=== PATIENT | female | born 1990 | race Caucasian/White ===

== ENCOUNTER → 2016-11-17 14:30 | Outpatient (CLI) | payer MEDICAID ==
[~2016-11-17 14:30] MED LIST: IBUPROFEN600 MG PO; PERCOCET 5-3251 TAB PO
[2017-01-25 09:11] VITALS: BMI 25.9
== END | disposition home or self-care (01) ==
LOC: D.LDO 14:30
DX: O26.893 Other specified pregnancy related conditions, third trimester (principal); Z3A.35 35 weeks gestation of pregnancy

== ENCOUNTER → 2016-11-21 13:13 | Outpatient (CLI) | payer MEDICAID ==
[2017-01-25 09:11] VITALS: BMI 25.9
== END | disposition home or self-care (01) ==
LOC: D.LDO 13:13
DX: O26.893 Other specified pregnancy related conditions, third trimester (principal); Z3A.36 36 weeks gestation of pregnancy

== ENCOUNTER → 2016-11-24 13:13 | Outpatient (CLI) | payer MEDICAID ==
[2017-01-25 09:11] VITALS: BMI 25.9
== END | disposition home or self-care (01) ==
LOC: D.LDO 13:13
DX: O26.893 Other specified pregnancy related conditions, third trimester (principal); Z3A.36 36 weeks gestation of pregnancy

== ENCOUNTER → 2016-11-28 13:41 | Outpatient (CLI) | payer MEDICAID ==
[2017-01-25 09:11] VITALS: BMI 25.9
== END | disposition home or self-care (01) ==
LOC: D.LDO 13:41
DX: O26.893 Other specified pregnancy related conditions, third trimester (principal); Z3A.37 37 weeks gestation of pregnancy

== ENCOUNTER → 2016-12-01 12:14 | Outpatient (CLI) | payer MEDICAID ==
[2017-01-25 09:11] VITALS: BMI 25.9
== END | disposition home or self-care (01) ==
LOC: D.LDO 12:14
DX: O26.893 Other specified pregnancy related conditions, third trimester (principal); Z3A.37 37 weeks gestation of pregnancy

== ENCOUNTER → 2016-12-06 13:01 | Outpatient (CLI) | payer MEDICAID ==
[2017-01-25 09:11] VITALS: BMI 25.9
== END | disposition home or self-care (01) ==
LOC: D.LDO 13:01
DX: O26.893 Other specified pregnancy related conditions, third trimester (principal); Z3A.38 38 weeks gestation of pregnancy

== ENCOUNTER → 2016-12-08 14:09 | Outpatient (CLI) | payer MEDICAID ==
[2017-01-25 09:11] VITALS: BMI 25.9
== END | disposition home or self-care (01) ==
LOC: D.LDO 14:09
DX: O26.893 Other specified pregnancy related conditions, third trimester (principal); Z3A.38 38 weeks gestation of pregnancy

== ENCOUNTER → 2016-12-13 13:26 | Outpatient (CLI) | payer MEDICAID ==
[2017-01-25 09:11] VITALS: BMI 25.9
== END | disposition home or self-care (01) ==
LOC: D.LDO 13:26
DX: O26.893 Other specified pregnancy related conditions, third trimester (principal); Z3A.39 39 weeks gestation of pregnancy

== ENCOUNTER 2016-12-14 22:30 | Inpatient (IN) | payer MEDICAID ==
[~2016-12-14] VITALS: Ht 154.9 cm; Wt 67.1 kg
[2016-12-14 23:09] LABS: HEMATOCRIT 39.2 % (36.0-48.0); HEMOGLOBIN 13.7 g/dL (12-16); MCH 32.5 pg (26.0-34.0); MCHC 34.9 g/dL (31.0-37.0); MCV 92.9 fL (80.0-100.0); RBC 4.22 10x6/uL (4.00-5.40); RDW 13.1 % (11.5-14.5); WBC 11.6 10x3/uL (4.8-10.8)
--- NOTE | 2016-12-15 01:40 | NUR ---
TRANSFERRED TO 1274 AMBULATORY FROM 1277. PT. AWAKE AND ORIENTED AND WITH STEADY GAIT. ORIENTED TO ROOM, CALL SYSTEM, THERMOSTAT, BED CONTROLS. PT. REPORTS FEELING DROWSY. DENIES PAIN AT THIS TIME.
[2016-12-15 01:44] VITALS: BP 115/57; Ht 154.9 cm; Wt 67.1 kg
[2016-12-15 01:48] VITALS: BP 115/57
[2016-12-15 02:03] VITALS: BP 108/60
[2016-12-15 02:18] VITALS: BP 111/60
--- NOTE | 2016-12-15 03:42 | NUR ---
LYING ON LT. SIDE WITH EYES CLOSED. RESPIRATIONS REGULAR.
--- NOTE | 2016-12-15 04:50 | NUR ---
REQUESTING SPRITE DRINK FOR DRY MOUTH. SAME PROVIDED. INTO ROOM FOR FEEDING. PT. WITH CONCERNS ABOUT FEEDING STATING THAT SHE HAS NOT HAD THIS LITTLE IN A WHILE AND UNSURE HOW TO FEED. ASSISTED PT. WITH FEEDING AND ENCOURAGEMENT GIVEN. PT. TALKING TO IN SOOTHING VOICE.
--- NOTE | 2016-12-15 06:15 | NUR ---
INFANT RETURNED TO THE NURSERY. NO COMPLAINTS.
--- NOTE | 2016-12-15 07:17 | NUR ---
PT ASLEEP. BEDSIDE REPORT OMITTED PER THIS NURSE AND Traci CHIANG RN
--- NOTE | 2016-12-15 08:00 | NUR ---
ASLEEP ON LT SIDE- NOT DISTURBED AT THIS TIME.
[2016-12-15 08:56] VITALS: BP 104/59
--- NOTE | 2016-12-15 09:00 | NUR ---
ASSESSMENT DONE -AWAKE AT THIS TIME. NO REQUESTS. FUNDUS UU/FIRM. SCANT LOCHIA NOTED ON PAD. STATES IS UP TO BATHROOM NEEDED.
--- NOTE | 2016-12-15 10:45 | NUR ---
sitting up in bed -visiting with family members. denies needs.
--- NOTE | 2016-12-15 11:49 | NUR ---
INSTRUCTED TO CALL NURSE NEXT TIME NEEDS TO VOID. GUEST TRAY FOR LUNCH ORDERED.
--- NOTE | 2016-12-15 12:00 | NUR ---
reg diet served. no requests.
[2016-12-15 13:00] LABS: BASOPHILS 0.1 % (0.0-2.0); EOSINOPHILS 1.4 % (0-7); HEMATOCRIT 32.6 % (36.0-48.0); HEMOGLOBIN 11.1 g/dL (12-16); IMMATURE GRANULOCYTES 0.3 % (0-5); LYMPHOCYTES 20.6 % (15-50); MCH 31.9 pg (26.0-34.0); MCV 93.7 fL (80.0-100.0); MEAN PLATELET VOLUME 11.1 fL (7.4-10.4); MONOCYTES 5.7 % (2-11); NEUTROPHILS 71.9 % (40-80); PLATELET COUNT 159 10x3/uL (130-400); RBC 3.48 10x6/uL (4.00-5.40); WBC 10.9 10x3/uL (4.8-10.8)
--- NOTE | 2016-12-15 13:30 | NUR ---
clean catch urine obtained for ua and uds. pt states that she is ready to shower and after shower would like pain medication for cramping. towels provided.
--- NOTE | 2016-12-15 14:00 | NUR ---
shower in room not draining. pt transfered to - room 1215. report to marah rodriges rn.
--- NOTE | 2016-12-15 14:36 | NUR ---
RECEIVED AMBULATORY PATINET TO ROOM 1215, ACCOMPANIED BY [employer] BOY AND L/D NURSE. SHE WISHES TO WAIT UNTIL AFTER "HER SHOW" TO TAKE A SHOWER. SHE DENIES ANY NEEDS AT THIS POINT. DENIES BLEEDING HEAVIER THAN A PERIOD. ENCOURAGED TO CALL FOR ANY REQUESTS/ NEEDS.
[2016-12-15 14:38] LABS: UDS - AMPHET NEGATIVE QUAL (NEGATIVE); UDS - BARB NEGATIVE QUAL (NEGATIVE); UDS - BENZO NEGATIVE QUAL (NEGATIVE); UDS - COCAINE NEGATIVE QUAL (NEGATIVE); UDS - METH NEGATIVE QUAL (NEGATIVE); UDS - OPIATE NEGATIVE QUAL (NEGATIVE); UDS - PCP NEGATIVE QUAL (NEGATIVE); UDS - THC NEGATIVE QUAL (NEGATIVE)
[2016-12-15 14:40] LABS: APPEARANCE CLOUDY (CLEAR); BILIRUBIN NEGATIVE (NEGATIVE); COLOR YELLOW (YELLOW); GLUCOSE NEGATIVE (NEGATIVE); KETONE NEGATIVE (NEGATIVE); LEUKOCYTE ESTERASE 1+ (NEGATIVE); NITRITE NEGATIVE (NEGATIVE); PH 5.5 (5.0-6.0); PROTEIN NEGATIVE (NEGATIVE); SPECIFIC GRAVITY 1.015 (1.005-1.020); UROBILINOGEN NORMAL (NORMAL)
[2016-12-15 14:41] LABS: BACTERIA FEW /hpf (NONE SEEN); EPITHELIAL CELLS 0-5 /hpf (0-5); RED CELLS - URINE >50 /hpf (0-5); WHITE CELLS - URINE 0-5 /hpf (0-5)
--- NOTE | 2016-12-15 15:46 | NUR ---
PATIENT SITTING UP BHUTANESE STYL ON HER BED TRYING TO BOTTLE FEED HER INFANT. HE IS LOOKING AROUND, NOT EATING AT THIS POINT. SHE IS TALKING TO HIM, INTRODUCED HIM TO ME AND KISSED HIS CHEEKS. BOY AT THE BEDSIDE. OFFERED SNACKS FROM THE NUTRITION ROOM. PAIN MEDICATION GIVEN FRO C/O CRAMPING PAIN THAT SHE RATES A 6. DENIES OTHER NEEDS AT THIS TIME. MONITORING.
--- NOTE | 2016-12-15 17:43 | NUR ---
PATIENT UP TO THE SHOWER. SON IN HER ROOM. LINENS PROVIDED. SHE DENIED OTHER NEEDS.
[2016-12-15 19:20] VITALS: BP 117/76
--- NOTE | 2016-12-15 19:20 | NUR ---
SHIFT ASSESSMENT/VITAL SIGNS DONE. PT SITTING UP IN BED HOLDING INFANT. STATES THAT SHE HAD A BOWEL MOVEMENT. STATES BLEEDING IS SCANT WITH NO CLOTS. STATES HER PAIN IS AT 5 AND THAT SHE WANTS A PERCOCET 10 NEXT TIME SHE NEEDS HER PAIN MEDS. STATES THAT THE PERCOCET 5 DID NOT DECREASE HER PAIN VERY MUCH. DENIES ANY REQUESTS AT THIS TIME. WILL CALL PRN.
--- NOTE | 2016-12-15 20:30 | NUR ---
PT WALKING IN JURADO. STATES SHE IS DOING FINE. NO REQUESTS AT THIS TIME.
--- NOTE | 2016-12-15 21:30 | NUR ---
PT TO DESK. REQUESTS DECAF COFFEE BE MADE. MADE AT THIS TIME PER PTS REQUEST. NO OTHER REQUESTS AT THIS TIME.
--- NOTE | 2016-12-15 22:15 | NUR ---
ROOM CHECK. PT SITTING UP IN BED FEEDING . STATES THAT SHE WOULD LIKE PAIN MEDS AFTER SHE FINISHES AND SENDS INFANT BACK TO NURSERY. ADVISED PT TO CALL NURSE WHEN READY FOR PAIN MEDS OR ANY OTHER ASSISTANCE NEEDED.
--- NOTE | 2016-12-15 23:20 | NUR ---
REQUESTED PAIN MEDICINE FOR CRAMPING AND BABY RETURNED TO NURSERY. PAIN MEDICINE GIVEN PER MAR. PAIN 6 OUT OF 10. ABDOMINAL CRAMPING. STATED MINIMAL BLEEDING.
--- NOTE | 2016-12-16 01:15 | NUR ---
ROOM CHECK. PT RESTING QUIETLY/ASLEEP. DID NOT AWAKEN WHEN NURSE ENTERED ROOM. NO S/S OF DISTRESS NOTED.
--- NOTE | 2016-12-16 03:30 | NUR ---
ROOM CHECK. PT REMAINS ASLEEP AT THIS TIME. NO S/S OF DISTRESS NOTED.
--- NOTE | 2016-12-16 06:00 | NUR ---
ROOM CHECK. PT ASLEEP ON LEFT SIDE. NO S/S OF DISTRESS NOTED.
[2016-12-16 06:15] LABS: RAPID PLASMA REAGIN Non Reactive (Non Reactive)
[2016-12-16 07:15] VITALS: BP 118/70
--- NOTE | 2016-12-16 07:15 | NUR ---
PT WAS RECEIVED THIS AM. SITTING UP IN BED. OFFERS NO COMPLAINTS. FOF AT BEDSIDE. GEN- AWAKE AND ALERT. LUNGS- CLEAR. HEART- RRR. ABD SOFT , TENDER, FUNDUS FIRM @ U2. SCANT LOCIA RUBRA ON JOSEP PAD. EXT. NO SCD'S. PT IS AMBULATTORY IN ROOM AND HALLWAYS. SIDE RAILS UP X 2, BED IS LOW AND CALL LIGHT IS IN REACH.
--- NOTE | 2016-12-16 07:45 | NUR ---
DR SCHWARTZ HERE TO SEE PT. NEW ORDERS NOTED.
--- NOTE | 2016-12-16 08:57 | NUR ---
SALINE LOCK WAS REMOVED R FOREARM. TIP INTACT.
--- NOTE | 2016-12-16 09:08 | NUR ---
PT IS UP AMBULATING IN HALLWAY. TOLERATING WELL.
[2016-12-16] MEDS ORDERED: PERCOCET 5-3251 TAB PO (09:53)
[2016-12-16] MEDS ORDERED: IBUPROFEN600 MG PO (09:53)
--- NOTE | 2016-12-16 11:47 | NUR ---
PT IS SITTING UP IN BED. REQUEST PAIN MED AND MOTRIN FOR A PAIN OF 5/10. GIVEN. BABY BACK TO NURSERY SO PT CAN REST.
--- NOTE | 2016-12-16 12:45 | NUR ---
DISCHARGE INSTRUCTIONS DISCUSSED WITH PT. HANDOUTS, MED LIST, HEALTH SUMMARY, PRESCRIPTIONS, AND FU APPT CARD ALL GIVEN TO PT. ENCOURAGE PT TO CALL US WITH ANY PROBLEMS OR QUESTIONS.
--- NOTE | 2016-12-16 13:58 | NUR ---
PT HAS ALL HER BELONGINGS TOGETHER. BABY HAS BEEN DISCHARGED. WAITING ON THEIR RIDE.
--- NOTE | 2016-12-16 14:40 | NUR ---
MOTHER WAS GIVEN MMR SINCE SHE WAS RUBELLA IMMUNE. R DELTOID
--- NOTE | 2016-12-16 14:55 | NUR ---
PT TAKEN TO VEHICLE BY WHEELCHAIR. IS DRIVING HER AND BABY BHUPINDER. PT IS SECURED IN CARSEAT.
== END 2016-12-16 14:59 | disposition home or self-care (01) | DRG 775 ==
LOC: D.LDO 22:30 → D.LD 22:33 → D.WS 12-15 14:35
PROVIDERS: ADMIT Specialist
PROC: 10E0XZZ Delivery of Products of Conception, External Approach (ICD-10-PCS; principal; 2016-12-14)
DX: O36.5930 Maternal care for other known or suspected poor fetal growth, third trimester, not applicable or unspecified (principal); O99.324 Drug use complicating childbirth; Z3A.39 39 weeks gestation of pregnancy; Z37.0 Single live birth; O69.81X0 Labor and delivery complicated by cord around neck, without compression, not applicable or unspecified; Q27.0 Congenital absence and hypoplasia of umbilical artery; O99.334 Smoking (tobacco) complicating childbirth; F12.90 Cannabis use, unspecified, uncomplicated; O62.3 Precipitate labor; O09.33 Supervision of pregnancy with insufficient antenatal care, third trimester

== ENCOUNTER 2017-01-25 05:18 | Day surgery (SDC) | payer MEDICAID ==
[2017-01-23 16:30] LABS: BASOPHILS 0.4 % (0.0-2.0); EOSINOPHILS 4.3 % (0-7); HEMATOCRIT 41.8 % (36.0-48.0); HEMOGLOBIN 14.3 g/dL (12-16); IMMATURE GRANULOCYTES 0.3 % (0-5); LYMPHOCYTES 26.6 % (15-50); MCH 32.3 pg (26.0-34.0); MCHC 34.2 g/dL (31.0-37.0); MCV 94.4 fL (80.0-100.0); MEAN PLATELET VOLUME 10.2 fL (7.4-10.4); MONOCYTES 7.6 % (2-11); NEUTROPHILS 60.8 % (40-80); PLATELET COUNT 215 10x3/uL (130-400); RBC 4.43 10x6/uL (4.00-5.40); RDW 12.5 % (11.5-14.5); WBC 7.9 10x3/uL (4.8-10.8)
[2017-01-23 16:49] LABS: CALC OSMOLALITY 280 mosm/kg (275-300); CALCIUM 9.2 mg/dL (8.5-10.1); CARBON DIOXIDE 28.1 mmol/L (21.0-32.0); CHLORIDE - SERUM 103 mmol/L (98-107); CREATININE - SERUM 0.7 mg/dL (0.6-1.3); GLUCOSE 99 mg/dL (74-106); POTASSIUM - SERUM 3.9 mmol/L (3.5-5.1); SODIUM 142 mmol/L (136-145); UREA NITROGEN 8 mg/dL (7-18); eGFR NON AFRICAN AMERICAN > 90 mL/min (90-120)
[~2017-01-25] VITALS: Ht 154.9 cm; Wt 62.1 kg
--- NOTE | 2017-01-25 07:11 | HP ---
PATIENT: MESERET PEPPER MEDICAL RECORD: [id number] ACCOUNT: [id number] LOCATION:TO : 89 ADMISSION DATE: 01/25/17 HISTORY AND PHYSICAL EXAMINATION DATE: 01/24/2017 HISTORY OF PRESENT ILLNESS: This patient is a 26-year-old 6, para 4, AB 2 white female who desires sterilization by tubal ligation. MEDICAL HISTORY: DRUG ALLERGIES: None known. CURRENT MEDICATIONS: None. MEDICAL PROBLEMS: Denies heart disease, diabetes, hypertension, kidney problems, thyroid problems. FAMILY HISTORY: Noncontributory. REVIEW OF SYSTEMS: No chest pain, no dyspnea. SOCIAL HISTORY: The patient is . HABITS: Former smoker. No ethanol use. PHYSICAL EXAMINATION: GENERAL: A well-developed, well-nourished white female in no distress. VITAL SIGNS: Blood pressure 118/61, weight 120 pounds. HEENT: Unremarkable. LUNGS: Clear. HEART: Regular rate and rhythm. PELVIC: At her visit, no abnormalities of the peritoneum, vagina and cervix. Uterus is normal size. Adnexa unremarkable. Rectal unremarkable. EXTREMITIES: No cyanosis, clubbing or edema. NEUROLOGIC: Grossly intact. IMPRESSION: Undesired fertility. The patient desires tubal sterilization. PLAN: Tubal sterilization via laparoscopy in a.m. I have discussed irreversibility and less than 100% success rate of tubal sterilization procedures. I have also discussed risks of laparoscopic surgery and tubal ligation. TRANSINT:[id number] Voice Confirmation ID: [id number] DOCUMENT ID: [id number] HISTORY AND PHYSICAL [id number] SHANTELLEMESERET EVANGELIST CARSON MD at 0711 CC: [id number] DICTATION DATE: 01/24/17 0735 ABSTRACT WRITER: 01/24/17 0825 REG [facility] [address] [place] [address]
[2017-01-25 09:11] VITALS: BP 126/68; Ht 154.9 cm; Wt 62.1 kg
[2017-01-25 09:43] LABS: HCG URINE NEGATIVE (NEGATIVE)
--- NOTE | 2017-01-25 13:32 | NUR ---
FILSHIE CLIPS X 2 ON BILATERAL TUBES
[2017-01-25] MEDS ORDERED: IBUPROFEN600 MG PO (14:40)
[2017-01-25] MEDS ORDERED: PERCOCET 5-3251 TAB PO (14:40)
--- NOTE | 2017-01-25 17:15 | NUR ---
AWAKENED FOR REASSESSMENT. DENIES NAUSEA. ASKED WHEN WOULD BE HERE, STATES "I'M GOING TO CALL HIM AND SEE WHERE HE IS." INSTRUCTED TO CALL ME WHEN ARRIVES FOR WHEELCHAIR FOR DISCHARGE, VOICED UNDERSTANDING.
--- NOTE | 2017-01-25 18:20 | NUR ---
HERE. DC INSTRUCTIONS AND RX GIVEN.
--- NOTE | 2017-02-13 08:25 | OP ---
PATIENT NAME: MESERET PEPPER MEDICAL RECORD: [id number] :89 LOCATION:D.OPS ADMISSION DATE: SURGEON: DOROTHY SCHWARTZ MD DATE OF OPERATION: 01/25/2017 PREOPERATIVE DIAGNOSIS: Undesired fertility. POSTOPERATIVE DIAGNOSIS: Undesired fertility. PROCEDURE: Laparoscopic bilateral tubal ligation. SURGEON: Dorothy Schwartz MD. ANESTHESIA: General. FINDINGS: Normal-appearing tubes, normal ovaries, normal pelvic anatomy. ESTIMATED BLOOD LOSS: Minimal. COMPLICATIONS OF PROCEDURE: None. OPERATIVE NOTE: The patient was taken to the OR and under adequate general anesthesia, prepped and draped in the usual manner for abdominal and vaginal procedures with legs in floating boot Warren stirrups. The anterior lip of the cervix was grasped with tenaculum. Intrauterine manipulator was placed and stabilized. Khalil catheter was inserted. An elliptical incision was made at the umbilicus and extended through subcutaneous tissue and fascia. Abdomen was then entered bluntly and digitally. Laparoscopic trocar sleeve was inserted followed by the laparoscope after distention of the abdomen. A second puncture was made in the left lower quadrant under direct visualization. Findings were as listed above. Fallopian tubes were then ligated times each using Filshie clips near the mid portion of the tubes bilaterally. Positions were observed to be adequate for complete obstruction of each tube. All instruments were then removed. Fascial layer at the umbilicus closed with single interrupted #1 Vicryl suture. Skin incision was closed using Dermabond. Steri-Strips and dressings were applied and the patient went to the recovery area in good condition. TRANSINT:[id number] Voice Confirmation ID: [id number] DOCUMENT ID: [id number] DOROTHY SCHWARTZ MD at 0825 CC: [id number] DICTATION DATE: 01/25/17 1355 OYSTER PREPARER: 01/25/179 [facility] 01/25/[address] [id number]
== END 2017-01-25 18:25 | disposition home or self-care (01) ==
LOC: D.OPS 05:18 → D.PAN 08:30 → D.OPS 09:30 → D.PAN 09:30 → D.OPS 18:25
PROVIDERS: Obstetrics & Gynecology
DX: Z30.2 Encounter for sterilization (principal); Z87.891 Personal history of nicotine dependence

== ENCOUNTER 2018-01-30 11:54 | Emergency (ER) | payer MEDICAID ==
[2017-01-25 09:11] VITALS: BMI 25.9
[2018-01-30 12:38] LABS: BASOPHILS 0.3 % (0-2); EOSINOPHILS 3.4 % (0-7); HEMATOCRIT 40.3 % (36.0-48.0); HEMOGLOBIN 13.6 g/dL (12-16); LYMPHOCYTES 32.6 % (15-50); MCH 31.4 pg (26.0-34.0); MCHC 33.7 g/dL (31.0-37.0); MCV 93.1 fL (80.0-100.0); MEAN PLATELET VOLUME 10.5 fL (7.4-10.4); MONOCYTES 6.7 % (2-11); PLATELET COUNT 223 10x3/uL (130-400); RBC 4.33 10x6/uL (4.00-5.40); RDW 13.6 % (11.5-14.5)
[2018-01-30 13:04] LABS: ALBUMIN 3.6 g/dL (3.4-5.0); ALKALINE PHOSPHATASE 104 U/L (46-116); ALT (SGPT) 22 U/L (10-68); BILIRUBIN - TOTAL 0.37 mg/dL (0.2-1.3); CALC OSMOLALITY 273 mosm/kg (275-300); CARBON DIOXIDE 28.9 mmol/L (21.0-32.0); CHLORIDE - SERUM 103 mmol/L (98-107); CREATININE - SERUM 0.7 mg/dL (0.6-1.3); GLUCOSE 102 mg/dL (74-106); POTASSIUM - SERUM 4.7 mmol/L (3.5-5.1); PROTEIN - SERUM 7.1 g/dL (6.4-8.2); SODIUM 138 mmol/L (136-145); UREA NITROGEN 8 mg/dL (7-18); eGFR NON AFRICAN AMERICAN > 90 mL/min (90-120)
[2018-01-30 13:15] LABS: CKMB 0.4 U/L (0.0-3.6); CREATINE KINASE 71 UL (21-215); MAGNESIUM - SERUM 2.1 mg/dL (1.8-2.4)
[2018-01-30 13:20] LABS: TROPONIN-I < 0.017 ng/mL (0.000-0.060)
== END 2018-01-30 14:16 | disposition home or self-care (01) ==
LOC: D.ER 11:54
PROVIDERS: Family Medicine
DX: R00.2 Palpitations (principal); I45.6 Pre-excitation syndrome; F17.200 Nicotine dependence, unspecified, uncomplicated